=== PATIENT | male | born 1950 | race Caucasian/White ===

== ENCOUNTER 2023-08-05 10:45 | Emergency (ER) | payer MEDICARE, SELFPAY ==
[2023-08-05 10:54] VITALS: BP 161/90; PULSE 109; RESP 18; TEMP 37.1; O2SAT 99
--- NOTE | 2023-08-05 11:00 | ED.LOWEXIN ---
HPI - Extremity Injury (Lower) General Chief Complaint: Extremity Injury, Lower Stated Complaint: Left Foot Pain Time Seen by Provider: 08/05/23 11:00 Source: patient Mode of arrival: ambulatory Limitations: no limitations History of Present Illness HPI Narrative: 72 y/o male presented for c/o left lower leg pain, red discoloration, numbness, and coldness to lower leg/foot. Sudden onset last night waking him about one hour after he fell asleep. Endorses calf tenderness, and pain to calf when flexing the foot and pain to the front of the ankle/jay when pointing toes. Numbness is reported to the top of the foot. He applied heating pad to the foot last night. Pain is worse when walking, rates 7/10. Has not taken anything for pain. Denies swelling, cp, palpitations, dizziness. Denies significant medical history. Smokes occasional cigar, drinks alcohol daily (Twisted Tea). Related Data Home Medications Medication Instructions Recorded Confirmed No Home Medications 10/26/22 08/05/23 Allergies Allergy/AdvReac Type Severity Reaction Status Date / Time No Known Allergies Allergy Verified 08/05/23 11:46 Review of Systems Review of Systems: CONSTITUTIONAL: Denies body aches, fever, chills EYES: Denies visual changes ENT: Denies rhinorrhea, congestion CARDIOVASCULAR: Denies chest pain, palpitations, or edema. RESPIRATORY: Denies cough or dyspnea. GASTROINTESTINAL: Denies abdominal pain, nausea, vomiting, or diarrhea. SKIN: Denies rash, itching, or wounds. MUSCULOSKELETAL: Reports left lower leg cold, red, pain; Denies back pain, joint pain, or myalgia. NEUROLOGIC: Denies headache, tingling, or weakness. All systems reviewed & are unremarkable except as noted in HPI and below [facility] Past Medical History Medical History (Updated 08/05/23 @ 11:56 by Kimberly Alves APRN) No pertinent past medical history Surgical History Surgical History (Updated 10/26/22 @ 11:54 by Shen Corral MD) History of Achilles tendon repair laceration as teenager Family History Family History (Updated 10/26/22 @ 11:55 by Shen Corrla MD) Father Acute myocardial infarction Diabetes mellitus Mother Alzheimer disease Social History Social History (Updated 08/05/23 @ 11:40 by Kimberly Alves APRN) Tobacco type: cigars Alcohol intake: current Alcohol use details: Twisted tea daily Comments At time of signature, I have reviewed and agree with nursing past medical, surgical, social and family history unless otherwise noted. Please see nursing chart for further information. There is no relevant family history pertinent to the presenting complaint Exam Narrative: GENERAL: Well-appearing CHEST: Speaks in full sentences. No respiratory distress. HEART: Regular rate and rhythm. Normal and equal peripheral pulses. EXTREMITIES: LLE has decreased sensation with dull/sharp to dorsal foot. Erythematous discoloration scattered to lower leg and foot, cool to touch. Pedal pulse decreased bilaterally. Positive David's, subjective pain with plantar movement. Tender calf with palpation. Left Foot with normal strength and normal range of motion at ankle; No edema or ecchymosis, No open wounds, or obvious deformity; alignment normal, Capillary refill less than 3 seconds. SKIN: Warm, dry, no rash. NEURO: Alert and oriented x3. PSYCH: Normal mood and affect Course Course Emergency Course: Patient is aware of diagnosis, understands and agrees to treatment plan. Anticipatory guidance given. Patient agrees to follow-up as directed and is aware of reasons to seek care at the emergency department. Portions of this record may have been created with voice recognition software Level of Care: Express Care Visit Vital Signs Vital signs: Vital Signs Temperature 98.7 F 08/05/23 10:54 Pulse Rate 109 H 08/05/23 10:54 Respiratory Rate 18 08/05/23 10:54 Blood Pressure 161/90 H 08/05/23 10:54 Puls
== END 2023-08-05 11:25 | disposition short-term general hospital (02) ==
PROVIDERS: Emergency Provider Nurse Practitioner Family; PCP Family Medicine Adolescent Medicine
DX: M79.662 Pain in left lower leg (principal); M79.672 Pain in left foot; Z72.0 Tobacco use
CPT/HCPCS: 99212; 99213; G0463

== ENCOUNTER 2023-08-05 11:38 | Emergency (ER) | payer MEDICARE, SELFPAY ==
[2023-08-05] VITALS (8 sets, daily range): BP systolic 159–180; BP diastolic 90–106; PULSE 82–114; RESP 16–28; TEMP 36.2–36.9; O2SAT 96–100
--- NOTE | ~2023-08-05 | CT_ITS ---
EXAMINATION: CTA [facility] DATE: 08/05/2023 12:53 INDICATION: Arterial occlusive disease. TECHNIQUE: Computed tomographic angiography (CTA) of the bilateral lower extremities was performed wi th 150 mL Omnipaque-350 intravenous contrast. Automated exposure control and iterative reconstruction technique were employed. The dose-length product was 569.15 mGy-cm. Maximum intensity projection 3D- reconstructions of the arteries were created by the technologist on a separate workstation. COMPARISON: None. FINDINGS: PELVIC VASCULATURE: There is mild stenosis of right internal and external iliac arteries and left internal iliac artery. There is total occlusion of left external iliac artery. RIGHT LOWER EXTREMITY VASCULATURE: There is mild stenosis of right common femoral artery and right profunda femoris. There is total occl usion of origin of right superficial femoral artery. There is reconstitution of flow and above-knee p opliteal artery. 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 There is mild stenosis of tibioperoneal trunk. There is total occlusion of proximal right anterior t ibial artery. There is no significant stenosis of the peroneal artery or posterior tibial artery. Per ponce artery contributes collaterals beyond the ankle. LEFT LOWER EXTREMITY VASCULATURE: There is reconstitution of flow in left common femoral artery with moderate stenosis. There is no sig nificant stenosis of the profunda femoris artery. There is mild stenosis of the superficial femoral a rtery. There is total occlusion of above knee popliteal artery with reconstitution of flow at the jami nt line. There is total occlusion of proximal anterior tibial artery. There is no significant stenosi s of the peroneal artery or posterior tibial artery. ADDITIONAL FINDINGS: There are no pathologically enlarged lymph nodes. There is no free intraperitoneal fluid. The prostat e is mildly enlarged. IMPRESSION: 1. Total occlusion of origin of right superficial femoral artery with reconstitution of flow in abov e-knee popliteal artery. 2. Moderate stenosis of right popliteal artery. 3. Total occlusion of proximal right anterior tibial artery. Two-vessel runoff on the right. 4. Total occlusion of left external iliac artery with reconstitution of flow in left common femoral a rtery. 5. Total occlusion of left above-knee popliteal artery with reconstitution of flow at the joint line. 6. Total occlusion of left anterior tibial artery. Two-vessel runoff on the left. Reviewed, dictated and finalized at location E. IMPRESSION: 1. Total occlusion of origin of right superficial femoral artery with reconsti tution of flow in above-knee popliteal artery. 2. Moderate stenosis of right popliteal artery. 3. Total occlusion of proximal right anterior tibial artery. Two-vessel runoff on the right. 4. Total occlusion of left external iliac artery with reconstitution of flow in left common femoral artery. 5. Total occlusion of left above-knee popliteal artery with reconstitution of f low at the joint line. 6. Total occlusion of left anterior tibial artery. Two-vessel runoff on the lef t.
--- NOTE | ~2023-08-05 | US_ITS ---
EXAMINATION: US venous doppler [facility] DATE: 08/05/2023 13:21 INDICATION: Left calf pain. TECHNIQUE: Grayscale ultrasound images without and with compression and Doppler ultrasound images of the left lower extremity veins were obtained. COMPARISON: None. FINDINGS: The visualized portions of left common femoral vein, profunda (deep) femoral vein, femoral vein, popl iteal vein, peroneal veins, posterior tibial veins, and greater saphenous vein outflow are patent. IMPRESSION: 1. No deep venous thrombosis. Reviewed, dictated and finalized at location E.
--- NOTE | 2023-08-05 12:08 | ED.LOWEXIN ---
HPI - Extremity Injury (Lower) General Chief Complaint: Extremity Injury, Lower Stated Complaint: lower leg pain/swelling/numb Time Seen by Provider: 08/05/23 12:08 History of Present Illness HPI Narrative: Patient is a 72 year old male with no known medical history, occasional smoker here with left lower leg pain, redness, cool to touch and numbness. He notes that around 10 PM last night he was woken from sleep with pain in his anterior mid jay on the left side. He notes the pain has been ongoing and worsens with plantar and dorsiflexion. He notes pain with ambulation as well. He additionally notes numbness in the foot which begins right below the malleoli and extends distally. He denies history of PE, DVT, afib. He presented to an urgent care, there they were concerned about his leg and sent him into the ER for additional evaluation. Denies recent surgeries or travel. Related Data Home Medications Medication Instructions Recorded Confirmed No Home Medications 10/26/22 08/05/23 Allergies Allergy/AdvReac Type Severity Reaction Status Date / Time No Known Allergies Allergy Verified 08/05/23 11:46 Review of Systems Review of Systems: All systems reviewed & are unremarkable except as noted in HPI and below PMF[facility] Past Medical History Medical History (Updated 08/05/23 @ 19:47 by Genesis Dozier MD) No pertinent past medical history Surgical History Surgical History (Updated 10/26/22 @ 11:54 by Shen Corral MD) History of Achilles tendon repair laceration as teenager Family History Family History (Updated 10/26/22 @ 11:55 by Shen Corral MD) Father Acute myocardial infarction Diabetes mellitus Mother Alzheimer disease Social History Social History (Updated 08/05/23 @ 11:40 by Kimberly Alves APRN) Tobacco type: cigars Alcohol intake: current Alcohol use details: Twisted tea daily Exam Narrative: GENERAL: Well-appearing, well-nourished, and in no acute distress. HEAD: Normocephalic, atraumatic. EYES: PERRLA and EOMI. ENT: Nares clear. Mucous membranes moist. NECK: Supple. CHEST: Clear to auscultation. No respiratory distress. HEART: Regular rate and rhythm. Normal peripheral pulses. ABDOMEN: Soft, nontender, nondistended. EXTREMITIES: Normal range of motion. Mild left lower extremity edema, faint erythema to the calf and foot. Left foot is more cool to touch than the right. Faint equal bilateral DP pulses appreciated. No calf tenderness. SKIN: Warm, dry, no rash. NEURO: No focal deficits. Alert and oriented x3. PSYCH: Normal mood and affect. Course Course Emergency Course: Chart review performed. Patient here with cold, painful, numb left leg and foot. Triage vitals show HTN at 179/100, HR of 106, remainder of vitals within normal limits. Patient seen and evaluated, non toxic appearing. Concern for possible arterial occlusion of the leg due to symptoms, pulse is appreciated equal bilaterally. Discussion with XR tech regarding urgent CTA. Additionally will do basic lab work, PT/PTT, LE doppler, NPO. Advised patient that we do not have a vascular surgery team here at our hospital and he may require transfer to higher level of care. This concern was communicated by our staff to the urgent care as well prior to transport to this hospital. Patient fairly resistant to idea of emergent transfer initially but is agreeable to workup and further discussion once we have additional imaging. Will wait to discuss with vascular until patient is agreeable to transfer. Lab work and imaging reviewed. CBC grossly normal, CMP grossly normal. CPK elevated at 1304, CRP and ESR normal. LE Doppler negative LE CTA shows multiple occlusions throughout bilateral lower extremities. Patient agreeable to transfer, will discuss with vascular. Discussed case with Dr. Ramires, vascular surgery at [facility], accepts for transfer. Inpatient bed assigned, patient transported via [facility] to [facility]
--- NOTE | 2023-08-05 12:25 | ECG_ITS ---
Measurements Intervals [place] Rate: 95 P: 71 MO: 141 QRS: 48 QRSD: 83 T: 59 QT: 358 QTc: 452 Interpretive Statements SINUS RHYTHM CANNOT RULE OUT SEPTAL INFARCT, AGE INDETERMINATE BORDERLINE ST ABNORMALITY- INF/LAT LEADS ABNORMAL ECG NO PREVIOUS ECG AVAILABLE FOR COMPARISON Electronically Signed On 08-05-2023 16:54:55 CDT by Doug Oconnor D.O.
[2023-08-05 12:46] LABS: Basophils Percent Auto 0.3 % (0.2-1.2); Hemoglobin 15.4 g/dL (14.0-18.0); Immature Granulocyte Absolute 0.03 K/mm3 (0.00-0.031); Immature Granulocyte Percent A 0.4 % (0-0.5); Lymphocytes Percent Auto 19.1 % (18.3-44.2); Mean Corpuscular HGB Conc 34.2 g/dl (32-36); Mean Corpuscular Hemoglobin 35.5 pg (26-34); Mean Corpuscular Volume 103.7 fl (80-100); Mean Platelet Volume 9.7 fl (7.4-10.4); Monocytes Absolute Auto 0.4 K/mm3 (0.1-0.6); Monocytes Percent Auto 5.6 % (2.6-8.5); Neutrophils Absolute Auto 5.9 K/mm3 (1.3-6.7); Neutrophils Percent Auto 74.6 % (45.5-73.1); Platelet Count Result 210 k/mm3 (150-375); Red Blood Count 4.34 M/mm3 (4.6-6.20); White Blood Count 7.8 K/mm3 (4.5-10.0)
[2023-08-05 12:56] LABS: INR 0.9; Lactic Acid Reflex 1.1 mmol/L (0.7-2.0); Prothrombin Time 12.9 Seconds (11.1-14.7)
[2023-08-05 12:57] LABS: Partial Thromboplastin Time 39.6 Seconds (22.3-36.8)
[2023-08-05 13:11] LABS: Estimated CRCL calculation 54 ml/min; Estimated Glomerular Filt Rate > 60
[2023-08-05 13:30] LABS: Erythrocyte Sedimentation Rate 10 mm/hr (0-20)
[2023-08-05 14:23] LABS: Alanine Aminotransferase 18 U/L (6-50); Albumin Level 4.2 g/dL (3.5-5.1); Alkaline Phosphatase 78 U/L (38-126); Anion Gap 8 mmol/L (4-12); Aspartate Amino Transferase 38 U/L (17-59); Bilirubin,Total 0.7 mg/dL (0.2-1.3); Blood Urea Nitrogen 11 mg/dL (9-20); CRP < 0.5 mg/dL (<1.0); Calcium 8.8 mg/dL (8.4-10.2); Carbon Dioxide 22 mmol/L (22-30); Chloride 104 mmol/L (98-107); Creatine Kinase 1304 U/L (55-170); Estimated CRCL calculation 59 ml/min; Estimated Glomerular Filt Rate > 60; Glucose 82 mg/dL (65-110); Potassium 4.5 mmol/L (3.4-5.0); Sodium 134 mmol/L (137-145)
[2023-08-05] MEDS: HEPARIN SODIUM 5,000 UNITS/ML VIAL 6000 UNITS IV PUSH (15:20)
[2023-08-05] MEDS: HEPARIN SOD/D5W 100 UNITS/ML 25,000 UNITS/250 ML BAG 13 UNITS IV CONT (15:45)
--- NOTE | 2023-08-05 17:16 | PC.NURSE ---
[facility] transfer center called, report given, pt to be direct admit but states no bed available at this time. Transfer center will call back when bed is available.
--- NOTE | 2023-08-05 17:40 | PC.NURSE ---
[facility] transfer center called with bed, Pt going to [facility], Dr. Perez accepting physician. Pt going to [id number] bed 1.
== END 2023-08-05 19:31 | disposition short-term general hospital (02) ==
LOC: ANHED 12:30
PROVIDERS: Emergency Provider Student in an Organized Health Care Education/Training Program; PCP Family Medicine Adolescent Medicine
DX: I73.9 Peripheral vascular disease, unspecified (principal); I99.8 Other disorder of circulatory system; M79.662 Pain in left lower leg; F17.290 Nicotine dependence, other tobacco product, uncomplicated
CPT/HCPCS: 36415; 73706; 80053; 82550; 83605; 85025; 85610; 85652; 85730; 86140; 93005; 93971; 96365; 96366; 99285; J1644; Q9967

== ENCOUNTER 2024-11-12 13:38 | Outpatient (CLI) | payer MEDICARE, SELFPAY ==
--- NOTE | ~2024-11-12 | XR_ITS ---
EXAM/PROCEDURE: XR chest 2V - 11/12/2024 13:41 CDT HISTORY: 73 years old Male with J42 - Unspecified chronic bronchitis TECHNIQUE: Two view(s) of the chest. COMPARISON: None available. FINDINGS: LUNGS/ PLEURA: No focal consolidation. No appreciable pneumothorax or large pleural effusion. HEART/ MEDIASTINUM: Heart appears normal in size. BONES: No acute osseous abnormality. OTHER: Visualized upper abdomen is unremarkable. IMPRESSION: No acute process. Reviewed, dictated and finalized at location A. IMPRESSION: No acute process.
== END 2024-11-12 13:39 | disposition home or self-care (01) ==
LOC: MICIMG 13:40
PROVIDERS: PCP Family Medicine Adolescent Medicine; Visit Provider Family Medicine Adolescent Medicine
DX: J42 Unspecified chronic bronchitis (principal)
CPT/HCPCS: 71046